=== PATIENT | male | born 1960 | race Caucasian/White ===

== ENCOUNTER 2019-01-20 21:03 | Inpatient (IN) | payer OTHER ==
[~2019-01-20] VITALS: Ht 180.3 cm; Wt 109.3 kg
[2019-01-20 21:03] VITALS: BP_SYST 139
--- NOTE | 2019-01-20 21:03 | NUR ---
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 Pt report given to JAH Cervantes.
--- NOTE | 2019-01-20 21:05 | NUR ---
Pt was brought in by ambulance c/o chest pain. Per EMT, pt received nitroglycerin out on the field with no relief. Pt states the pain started an hour ago but has been on and off for about a month. Pt denies N/V, or shortness of breath. Pt states pain goes across entire chest. Pt states prior to calling 911, pt was on the floor rolling around in pain. No other injuries/complaints per patient or noted.
--- NOTE | 2019-01-20 21:05 | NUR ---
Pt came in with a 20g angiocath in place to left AC, placed while in the field.
[2019-01-20] MEDS ORDERED: NACL 0.9% 1,000 ML IV ONE (21:09)
--- NOTE | 2019-01-20 21:10 | NUR ---
ER Dr. Carmona at bedside examining patient.
[2019-01-20] MEDS ORDERED: ASPIRIN 81 MG TAB.CHEW PO ONE (21:15)
[2019-01-20 21:35] LABS: BASOPHILS # (AUTO) 0.1 K/uL (0.0-0.2); BASOPHILS % (AUTO) 1.3 % (0.0-2.0); EOSINOPHILS # (AUTO) 0.4 K/uL (0.0-0.4); EOSINOPHILS % (AUTO) 6.5 % (0.0-4.0); HEMATOCRIT 35.1 % (36-54); HEMOGLOBIN 11.6 g/dL (14.0-18.0); LYMPHOCYTES # (AUTO) 2.6 K/uL (1.0-5.5); LYMPHOCYTES % (AUTO) 40.6 % (20.5-51.5); MEAN CORPUSCULAR HEMOGLOBIN 31 pg (27-31); MEAN CORPUSCULAR HGB CONC 33 % (32-36); MEAN CORPUSCULAR VOLUME 94 fL (79.0-98.0); MONOCYTES # (AUTO) 0.5 K/uL (0.0-1.0); MONOCYTES % (AUTO) 8.4 % (1.7-9.3); NEUTROPHILS # (AUTO) 2.7 K/uL (1.8-7.7); NEUTROPHILS % (AUTO) 43.2 % (40.0-70.0); PLATELET COUNT (AUTO) 243 K/uL (130-430); RED BLOOD CELL COUNT(AUTO) 3.73 MIL/uL (4.2-6.2); RED CELL DISTRIBUTION WIDTH 13.1 % (9.0-15.0); WHITE BLOOD COUNT (AUTO) 6.3 K/uL (4.8-10.8)
[2019-01-20 21:38] LABS: CALCIUM 8.5 mg/dL (8.4-11.0); CREATININE 1.33 mg/dL (0.55-1.30); POTASSIUM 4.2 mmol/L (3.5-5.1)
[2019-01-20 21:47] LABS: ALBUMIN 3.8 g/dL (3.4-4.8); TOTAL BILIRUBIN 0.1 mg/dL (0.0-1.0)
[2019-01-20] MEDS ORDERED: PANTOPRAZOLE SODIUM 40 MG/VIAL (PROTONIX) IVP ONE (22:00)
[2019-01-20] MEDS ORDERED: KETOROLAC TROMETHAMINE 30 MG VIAL IVP ONE (22:00)
--- NOTE | 2019-01-20 22:26 | NUR ---
medications were given, pt tolerated well. No adverse reaction, will continue to monitor.
[2019-01-21] VITALS (17 sets, daily range): BP systolic 133–169
[2019-01-21] MEDS ORDERED: NITROGLYCERIN 1 INCH (GM) OINT. TP ONE
[2019-01-21] MEDS ORDERED: METOPROLOL TARTRATE 5 MG/5 ML VIAL IVP ONE
[2019-01-21] MEDS ORDERED: ENOXAPARIN SODIUM 100 MG/ML SYRINGE SUBCUT ONE
[2019-01-21] MEDS ORDERED: MORPHINE 4 MG/ML INJ. SYRINGE IVP ONE (00:30)
[2019-01-21] MEDS ORDERED: METF1000 PO (00:34)
[2019-01-21] MEDS ORDERED: LOSA100T23 PO (00:35)
[2019-01-21] MEDS ORDERED: ATOR20TA64 PO (00:36)
[2019-01-21 00:55] LABS: PROTHROMBIN TIME 10.1 SECS (9.5-12.5)
--- NOTE | 2019-01-21 01:05 | NUR ---
Transfer to Telemetry via ACLS protocol. Licensed nurse present. IV present no signs or symptoms of infiltration.
--- NOTE | 2019-01-21 01:05 | NUR ---
Patient will be admitted to care of Dr. Jossue Espino. Admitted to Telemetry unit. Will go to room 111 B. Belongings list completed. Summary report printed. Report will be given at bedside.
--- NOTE | 2019-01-21 01:09 | NUR ---
ADMIT NOTE Received pt from ER to the floor with a diagnosis of chest pain. Admission process initiated. patient oriented to pain management, safety and call light-teach back done.
--- NOTE | 2019-01-21 01:47 | NUR ---
Patient resting in bed awake, alert, oriented x4. Breathing unlabored and even on room air. No signs of distress, no needs at this time. Fall and safety precautions in place. Bed in lowest position, brake on, call light within reach. Bed alarm refused. IVF infusing as ordered. Will continue to monitor.
--- NOTE | 2019-01-21 03:21 | NUR ---
Patient resting in bed with eyes closed. Breathing unlabored and even on room air. No signs of distress, no needs at this time. Fall and safety precautions in place. Bed in lowest position, brake on, call light within reach. Bed alarm refused. IVF infusing as ordered. Will continue to monitor.
--- NOTE | 2019-01-21 04:39 | NUR ---
CONSULT CONSULT CALLED FOR DR. ALIA LUONG I SPOKE WITH DAIN TUKCER REASON FOR CONSULT: CHEST PAIN REQUESTING CONSULT: DR. ALIA GOMEZ CHORAL DIRECTOR PHONE NUMBER: [phone]
--- NOTE | 2019-01-21 06:45 | NUR ---
CLOSING NOTE Patient resting in bed with eyes closed. Breathing unlabored and even on room air. No signs of distress, no needs at this time. Fall and safety precautions in place. Bed in lowest position, brake on, call light within reach. Bed alarm refused. IVF infusing as ordered. Will endorse cares to day shift nurse.
[2019-01-21] MEDS ORDERED: D5W 1,000 ML IV PRN (07:26)
[2019-01-21] MEDS ORDERED: INSULIN REGULAR, HUMAN 100 UNITS/ML, 10 ML VIAL (novoLIN R) SUBCUT PRN (07:30)
[2019-01-21] MEDS ORDERED: LORazepam 2 MG/ML VIAL IVP PRN (07:30)
[2019-01-21] MEDS ORDERED: GLUCOSE 15 GM GEL (in 37.5 GM TUBE) PO PRN (07:30)
[2019-01-21] MEDS ORDERED: ONDANSETRON HCL 4 MG/2 ML VIAL IVP PRN (07:30)
[2019-01-21] MEDS ORDERED: DEXTROSE 50% JECT 50 ML DISP.SYRIN IVP PRN (07:30)
[2019-01-21] MEDS ORDERED: HYDROcodone/ACETAMIN 10-325 MG TAB PO PRN (07:30)
[2019-01-21] MEDS ORDERED: ACETAMINOPHEN 325 MG TABLET PO PRN (07:30)
[2019-01-21] MEDS ORDERED: HYDROcodone/ACETAMIN 5-325 MG TAB (NORCO/ VICODIN) PO PRN (07:30)
--- NOTE | 2019-01-21 08:00 | NUR ---
OPENING NOTE patient received resting in bed A&O x4, patient denies any acute distress or pain at this time, vital signs are stable, educated patient on plan of care and call light system, will continue to monitor, safety precautions in place, call light within reach.
[2019-01-21] MEDS: ATORVASTATIN 20 MG TABLET PO SCH (08:15)
[2019-01-21] MEDS: metFORMIN HCL 500 MG TABLET PO SCH ×2 (08:16→17:42)
[2019-01-21 08:37] LABS: THYROID STIMULATING HORMONE 2.55 uIu/mL (0.36-3.74)
--- NOTE | 2019-01-21 08:49 | NUR ---
PAGED DR. LUNA regarding elevated troponin.
[2019-01-21] MEDS ORDERED: LOSARTAN POTASSIUM 50 MG TABLET (COZAAR) PO SCH (09:00)
--- NOTE | 2019-01-21 09:10 | NUR ---
PAGED DR. LUNA for the second time regarding elevated troponin, awaiting MD to call back.
--- NOTE | 2019-01-21 09:55 | NUR ---
SPOKE TO DR. Ben ROJO new orders received.
--- NOTE | 2019-01-21 10:10 | NUR ---
PATIENT TRANSFERRED to ICU, report given at bedside, patient denies any acute distress or chest pain at this time, breathing is even and unlabored on room air, all needs were met, safety precautions in place.
--- NOTE | 2019-01-21 10:15 | NUR ---
Received PT from [facility] via transfer. Endorsing nurse provided plan of care via SBAR. PT was not in any distress or complained of any discomforts.
--- NOTE | 2019-01-21 12:35 | NUR ---
Inserted a 20 gauge right forearm IV. PT tolerated the procedure without complication or complaint.
--- NOTE | 2019-01-21 13:30 | NUR ---
ATTEMPTED TO PAGE DR. TUCKER FOR NEPHRO CONSULT R/T MITRA, REMAINED ON HOLD FOR 5 MINUTES WITHOUT RESPONSE
[2019-01-21] MEDS: NORMAL SALINE 5 ML DISP.SYRIN IVF SCH ×2 (13:47→21:39)
--- NOTE | 2019-01-21 13:52 | NUR ---
2ND ATTEMPT TO PAGE DR. TUCKER FOR NEPHRO CONSULT R/T MITRA, REMAINED ON HOLD FOR 5 MINUTES WITHOUT RESPONSE
[2019-01-21] MEDS ORDERED: NORMAL SALINE 5 ML DISP.SYRIN IVF SCH (14:00)
--- NOTE | 2019-01-21 14:02 | NUR ---
DR. TUCKER/HAY PAGED FOR NEPHRO CONSULT R/T MITRA, SPOKE TO MACEY AT EXCHANGE WHO STATED DR. GUIDO WILL BE PAGED, HE IS COVERING FOR DR. TUCKER TODAY.
[2019-01-21] MEDS ORDERED: METOPROLOL SUCCINATE 25 MG TAB.SR.24H (TOPROL XL) PO ONE (16:30)
[2019-01-21] MEDS ORDERED: ENOXAPARIN SODIUM 60 MG/0.6 ML SYRINGE SUBCUT ONE (16:30)
--- NOTE | 2019-01-21 19:34 | NUR ---
Closing Note Plan of care given to endorsing nurse via SBAR, Rasheed TYSON. Completed bedside round.
--- NOTE | 2019-01-21 20:00 | NUR ---
PM Assessment Pt in bed, AAO. SR shown on monitor with HB noted. Pt on RA, saturating in mid to high 90s. Pt not c/o of any distress or pain a this time. Pt has LAC 20g and RFA 20g in [address]. Sites are C/D/I, no s/s of infiltration noted. Bedside commode in room, Bed locked in lowest position, safety precautions in place, and call light in reach. Will continue to monitor.
[2019-01-21] MEDS: METOPROLOL SUCCINATE 25 MG TAB.SR.24H (TOPROL XL) PO SCH (20:45)
--- NOTE | 2019-01-21 23:45 | NUR ---
Pt vomited 75ml of green fluid, water consistency. Pt states he felt nauseous all of a sudden when turning on his side, then proceeded to vomit. As of now, Pt states he feels "perfectly fine." VSS, with BP slightly elevated. Pt not c/o of any N/V, SOB, of distress at this time. Will continue to monitor. Addendum: 01/22/19 at 0555 by Rasheed Rivero RN Error. Wrong Pt.
[2019-01-22] VITALS (19 sets, daily range): BP systolic 133–168
[2019-01-22] MEDS ORDERED: ENOXAPARIN SODIUM 60 MG/0.6 ML SYRINGE SUBCUT SCH
--- NOTE | 2019-01-22 02:05 | NUR ---
RN Round Pt in bed asleep. No s/s of distress or discomfort noted. Will continue to monitor.
--- NOTE | 2019-01-22 04:30 | NUR ---
RN Rounds Pt in bed asleep. No s/s of distress noted. Pt has episodes of bradycardia that go into the high 40s, low 50s that is sustained for a couple of seconds at a time. No c/o of pain noted. Will continue to monitor.
[2019-01-22 05:21] LABS: BASOPHILS # (AUTO) 0.1 K/uL (0.0-0.2); BASOPHILS % (AUTO) 0.8 % (0.0-2.0); EOSINOPHILS # (AUTO) 0.4 K/uL (0.0-0.4); EOSINOPHILS % (AUTO) 5.7 % (0.0-4.0); HEMOGLOBIN 11.7 g/dL (14.0-18.0); LYMPHOCYTES # (AUTO) 2.4 K/uL (1.0-5.5); LYMPHOCYTES % (AUTO) 33.4 % (20.5-51.5); MEAN CORPUSCULAR HEMOGLOBIN 31 pg (27-31); MEAN CORPUSCULAR HGB CONC 34 % (32-36); MEAN CORPUSCULAR VOLUME 93 fL (79.0-98.0); MONOCYTES # (AUTO) 0.8 K/uL (0.0-1.0); MONOCYTES % (AUTO) 11.3 % (1.7-9.3); NEUTROPHILS # (AUTO) 3.4 K/uL (1.8-7.7); NEUTROPHILS % (AUTO) 48.8 % (40.0-70.0); PLATELET COUNT (AUTO) 214 K/uL (130-430); RED BLOOD CELL COUNT(AUTO) 3.76 MIL/uL (4.2-6.2); RED CELL DISTRIBUTION WIDTH 12.7 % (9.0-15.0); WHITE BLOOD COUNT (AUTO) 7.1 K/uL (4.8-10.8)
[2019-01-22 05:35] LABS: CALCIUM 8.7 mg/dL (8.4-11.0); CREATININE 0.84 mg/dL (0.55-1.30); POTASSIUM 4.1 mmol/L (3.5-5.1)
[2019-01-22 05:45] LABS: PHOSPHORUS 3.2 mg/dL (2.7-4.5)
[2019-01-22] MEDS: NORMAL SALINE 5 ML DISP.SYRIN IVF SCH ×2 (06:10→13:34)
--- NOTE | 2019-01-22 06:50 | NUR ---
Closing Note Pt in bed, AAO. SR w/ HB noted on monitor. Pt on 1L NC saturating in the mid to high 90s. Pt has LAC 20g and RFA 20g SL. Sites are C/D/I, no s/s of infiltration noted. Pt not c/o of any pain at this time. No distress noted. Pt has periods of asymptomatic bradycardia. Bed locked in lowest position, safety precautions in place, and call light in reach. Will endorse to oncoming shift.
--- NOTE | 2019-01-22 07:15 | NUR ---
Received patient and endorsement from [facility] shift nurse. Patient in bed side rails x 3 up call light in reach. No acute distress noted. No complaining of pain. Educated patient to request assistance with ambulating and to use call light x3, patient agreed.
--- NOTE | 2019-01-22 07:28 | NUR ---
Endorsement Report given to oncoming nurse at bedside via SBA approach.
[2019-01-22] MEDS: metFORMIN HCL 500 MG TABLET PO SCH ×2 (08:48→18:12)
[2019-01-22] MEDS: METOPROLOL SUCCINATE 25 MG TAB.SR.24H (TOPROL XL) PO SCH (08:49)
[2019-01-22] MEDS: ATORVASTATIN 20 MG TABLET PO SCH (08:49)
[2019-01-22] MEDS ORDERED: LOSARTAN POTASSIUM 50 MG TABLET (COZAAR) PO SCH (09:00)
[2019-01-22] MEDS ORDERED: ENOXAPARIN SODIUM 80 MG/0.8 ML SYRINGE SUBCUT SCH (12:31)
--- NOTE | 2019-01-22 14:43 | NUR ---
[facility] nurse Mily called in regards to patient. Stated will send to [facility] due to able to do cardiac cath procedure. Stated does not have a bed yet but will call back when bed is available. Requested finance insurance manager notes and order for discharge.
--- NOTE | 2019-01-22 14:45 | NUR ---
MD Espino new order to discharged patient to [facility] when bed is available, patient aware.
--- NOTE | 2019-01-22 14:50 | NUR ---
ASSISTANT OPERATIONS MANAGER. DR LUNA AT BEDSIDE EXAMINING PATIENT.
--- NOTE | 2019-01-22 15:23 | NUR ---
Faxed cardiology notes and discharge orders per [facility] request to [phone].
--- NOTE | 2019-01-22 15:40 | NUR ---
Cheryl from [facility] ([phone]) called stated pickup time will be 1800 to [facility] room 7111 under MD Marx. Requested copy of chart and diagnostic results to be sent with patient.
--- NOTE | 2019-01-22 16:15 | NUR ---
Patient on gurney transporting out of unit to [facility] via [facility] ambulance.
--- NOTE | 2019-01-22 16:44 | NUR ---
Gave report to [place] nurse Luke penn patient. Stated if have any questions to call [phone].
== END 2019-01-22 18:18 | disposition short-term general hospital (02) | DRG 281 ==
LOC: SED 21:03 → STU 01-21 00:43 → SIC 01-21 10:00
PROVIDERS: ADMIT Preventive Medicine Preventive Medicine/Occupational Environmental Medicine; ATTEND Preventive Medicine Preventive Medicine/Occupational Environmental Medicine
DX: I21.4 Non-ST elevation (NSTEMI) myocardial infarction (principal); N17.9 Acute kidney failure, unspecified; I13.10 Hypertensive heart and chronic kidney disease without heart failure, with stage 1 through stage 4 chronic kidney disease, or unspecified chronic kidney disease; E66.9 Obesity, unspecified; F03.90 Unspecified dementia, unspecified severity, without behavioral disturbance, psychotic disturbance, mood disturbance, and anxiety; D64.9 Anemia, unspecified; E78.5 Hyperlipidemia, unspecified; E11.22 Type 2 diabetes mellitus with diabetic chronic kidney disease; N18.9 Chronic kidney disease, unspecified; E11.65 Type 2 diabetes mellitus with hyperglycemia; Z68.33 Body mass index [BMI] 33.0-33.9, adult; Z83.3 Family history of diabetes mellitus; Z82.49 Family history of ischemic heart disease and other diseases of the circulatory system; Z79.899 Other long term (current) drug therapy; Z79.82 Long term (current) use of aspirin
CPT/HCPCS: 36415; 71045; 80048; 80053; 80061; 82962; 83735-TC; 84100-TC; 84443-TC; 84484; 85025; 85610-TC; 85730-TC; 87081; 93005; 93306; 96361; 96372; 96374; 96375; 99285; C9113; J1650; J1815; J1885; J2270; J3490